=== PATIENT | male | born 1995 | race Caucasian/White ===

== ENCOUNTER → 2020-08-27 00:19 | Outpatient (CLI) | payer OTHER, SELFPAY ==
[2020-08-27 18:30] LABS: SARS-CoV-2 RNA PCR Negative
== END ==
PROVIDERS: PCP Emergency Medicine; Visit Provider Internal Medicine Gastroenterology
DX: Z01.812 Encounter for preprocedural laboratory examination (principal); Z20.822 Contact with and (suspected) exposure to COVID-19
CPT/HCPCS: C9803; U0003; U0005

== ENCOUNTER 2020-08-30 04:33 | Day surgery (SDC) | payer OTHER, SELFPAY ==
[2020-08-15 14:24] VITALS: BMI 27.1
--- NOTE | 2020-08-30 12:17 | P.PNAN_ITS ---
Anes - Initial Pre Proc Eval Procedure: Operation Date: 08/30/20 13:30 Proposed Procedures p Esophagogastroduodenoscopy & Colonoscopy - Yves Zamora MD Date/Time: 08/30/20 12:17 Surgeon: Yves Zamora MD Pre Op Diagnosis: abd pain, GERD Patient Data Age: 25 Gender: M Height: 5 ft 10 in Weight: 86 kg Allergies Allergy/AdvReac Type Severity Reaction Status Date / Time No Known Allergies Allergy Verified 08/30/20 12:17 Home Medications Medication Instructions Recorded Confirmed Type sod picosulf 10 mg-magnes 3.5 160 ml PO BID #160 ml 08/07/20 Rx gram-citric 12 gram/160 mL oral solution pantoprazole 40 mg PO DAILY 08/15/20 08/15/20 History Patient hx anesthesia problems: none Family hx anesthesia problems: none [facility] Past Medical History Medical History (Updated 08/30/20 @ 12:17 by Rachid Kim MD) GERD (gastroesophageal reflux disease) Social History Social History Smoking status: Never smoker Alcohol intake: current Drinks per week: 1 Substance use: former Substance use type: marijuana Last use: 2018 Living arrangements: with roommate(s) Spiritual care concerns: No Anes - Eval Final PreProcedure Day of Procedure 08/30/20 12:17 Patient weight: normal Heart: regular rate and rhythm Lungs: clear to auscultation Airway: Mallampati scale class II Neurological: alert and oriented Last oral intake: >/= 8 hours ASA classification: II Emergent: no Anesthetic plan: proceed Anesthesia type and monitoring: general GIVS and standard monitoring Informed Consent: The patient's anesthetic plan and its attendant risks and benefits were discussed with the patient/family/POA. Questions were solicited and answers provided to the satisfaction of the patient/family/POA.
[2020-08-30 12:18] VITALS: BP 135/95; PULSE 117; RESP 18; TEMP 36.6; O2SAT 99; BMI 27.0
[2020-08-30] MEDS: LACTATED RINGERS 1,000 ML 150 ML IV CONT (12:34)
--- NOTE | 2020-08-30 13:21 | PM.HPGS ---
History of Present Illness History of Present Illness Consent: Risks, benefits, and alternatives have been discussed and questions answered. Patient agrees to proceed with procedure. Chief complaint: abd pain, GERD Narrative: David Donaldson is a 25 year old male with gerd but better after using protonix, also intermittent lower abdominal pain with blood in stools, never had scopes. CT scan in the past normal, mother has UC Review of Systems Constitutional: Constitutional: Denies headache(s) and Denies weakness Eyes: Eyes: Denies blurry vision ENT: Reports Normal hearing present, Denies headache(s) and Denies neck pain Cardiovascular: Cardiovascular: Denies chest pain and Denies dyspnea Respiratory: Respiratory: Denies dyspnea Gastrointestinal: Gastrointestinal: Reports no additional gastrointestinal complaints Genitourinary: Genitourinary: Denies dysuria Musculoskeletal: Musculoskeletal: Denies neck pain Integumentary/Breasts: Skin/Breast: Denies dry skin Neurologic: Reports Normal hearing present, Denies headache(s) and Denies weakness Psychiatric: Psychiatric: Denies anxiety Endocrine: Endocrine: Denies change in body appearance Hematologic/Lymphatic: Hematologic/Lymphatic: Denies easy bleeding Allergic/Immunologic: Allergic/Immunologic: Denies urticaria PMF Past Medical History Medical History (Updated 08/30/20 @ 13:22 by Yves Zamora MD) Blood in stool GERD (gastroesophageal reflux disease) Lower abdominal pain Social History Social History Smoking status: Never smoker Alcohol intake: current Drinks per week: 1 Substance use: former Substance use type: marijuana Last use: 2019 Living arrangements: with roommate(s) Spiritual care concerns: No Meds Home Medications and Allergies Home Medications Medication Instructions Recorded Confirmed Type sod picosulf 10 mg-magnes 3.5 160 ml PO BID #160 ml 08/07/20 Rx gram-citric 12 gram/160 mL oral solution pantoprazole 40 mg PO DAILY 08/15/20 08/15/20 History Allergies Allergy/AdvReac Type Severity Reaction Status Date / Time No Known Allergies Allergy Verified 08/30/20 12:17 Vital Signs Vital Signs - 24 hr 08/30/20 12:18 Temperature 97.9 F Pulse Rate 117 H Respiratory Rate 18 Blood Pressure 135/95 H Pulse Oximetry 99 Exam Const: General: comfortable and no acute distress HENMT: General nose exam: Normal nares present Eyes: General: appearance normal, both eyes and all related structures Neck: Neck: no JVD Resp: Auscultation: clear to auscultation bilaterally Cardio: Rate: regular rate Rhythm: regular rhythm GI: Inspection: non-distended GI Palp: Yes Soft to palpation Skin: General skin exam: normal color Neuro: General: gait normal Speech: normal speech Extrem: General: normal to inspection Psych: Mental Status: mental status grossly normal Assessment and Plan Assessment and plan (1) GERD (gastroesophageal reflux disease): Code(s): K21.9 - Gastro-esophageal reflux disease without esophagitis Status: Inactive Assessment and Plan: egd, better with ppi (2) Blood in stool: Code(s): K92.1 - Melena Status: Acute Assessment and Plan: colonoscopy (3) Lower abdominal pain: Code(s): R10.30 - Lower abdominal pain, unspecified Status: Acute
[2020-08-30] MEDS: BENZOCAINE (*SP) 60 ML SPRAY CAN (HURRICAINE) 1 SPRAY MUCOUS MEM (13:24)
[2020-08-30 13:53] VITALS: BP 99/57; PULSE 78; RESP 27; O2SAT 100
[2020-08-30 14:03] VITALS: BP 91/74; PULSE 89; RESP 27; O2SAT 100
[2020-08-30 14:13] VITALS: BP 110/71; PULSE 74; RESP 25; O2SAT 100
== END 2020-08-30 14:25 | disposition home or self-care (01) ==
PROVIDERS: PCP Emergency Medicine; Visit Provider Internal Medicine Gastroenterology
PROC: 0DJ08ZZ Inspection of Upper Intestinal Tract, Via Natural or Artificial Opening Endoscopic (ICD-10-PCS; CPT 43235; principal; 2020-08-30 13:30)
DX: K92.1 Melena (principal); R10.30 Lower abdominal pain, unspecified; K21.9 Gastro-esophageal reflux disease without esophagitis; F12.90 Cannabis use, unspecified, uncomplicated
CPT/HCPCS: 45378; 43239; 88305; J2704; J7120